=== PATIENT | male | born 1995 | race Caucasian/White ===

== ENCOUNTER 2018-12-20 17:55 | Emergency (ER) | payer BC ==
[2018-12-20] MEDS ORDERED: Diph,Pert(Acell),Tet Vac 0.5 ML SYR IM ONE (18:07)
[2018-12-20] MEDS ORDERED: HYDROCODONE/APAP 7.5/325MG TABLET PO ONE (18:07)
[2018-12-20] MEDS ORDERED: IBUPROFEN 400 MG TABLET PO ONE (18:07)
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
[2018-12-20] MEDS ORDERED: TOPICAL LIDOCAINE W/ EPI 5 ML TOP ONE (19:04)
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
== END 2018-12-20 20:00 | disposition home or self-care (01) ==
LOC: ER 17:55
DX: S62.024A Nondisplaced fracture of middle third of navicular [scaphoid] bone of right wrist, initial encounter for closed fracture (principal); S61.411A Laceration without foreign body of right hand, initial encounter; S80.212A Abrasion, left knee, initial encounter; S30.810A Abrasion of lower back and pelvis, initial encounter; S60.511A Abrasion of right hand, initial encounter; V86.56XA Driver of dirt bike or motor/cross bike injured in nontraffic accident, initial encounter; F17.210 Nicotine dependence, cigarettes, uncomplicated
CPT/HCPCS: 12001; 90715; 96372; 99284